=== PATIENT | male | born 1990 | race Two or more races ===

== ENCOUNTER 2022-01-11 16:05 | Emergency (ER) | payer OTHER ==
--- NOTE | 2022-01-11 16:55 | CT Report ---
PROCEDURE: HEAD WO INDICATIONS: fall off ladder, +LOC TECHNIQUE: Noncontrast 4.5 mm thick angled axial sections acquired from the foramen magnum to the vertex. For r adiation dose reduction, the following was used: automated exposure control, adjustment of mA and/or kV according to patient size. COMPARISON: None. FINDINGS: Image quality: Excellent. CSF spaces: Basal cisterns are patent. No extra-axial fluid collections. Ventricles are normal in size and shape. Brain: No midline shift. No intracranial masses or hemorrhage. Fulton-white matter interface is norm al. Skull and face: Calvarium and visualized facial bones are intact, without suspicious lesions. Sinuses: Marked mucosal thickening or multiple mucous retention cysts in the left maxillary sinus. Ot herwise unremarkable sinuses and mastoids. IMPRESSION: No evidence of acute intracranial process. Left maxillary sinus disease. Reviewed by: Richard Beck MD on 01/11/2022 4:54 PM PDT Approved by: Richard Beck MD on 01/11/2022 4:54 PM PDT Station ID: [id number]
--- NOTE | 2022-01-11 17:02 | ED Physician Documentation ---
PD HPI HEAD INJURY - Stated complaint Stated Complaint: HEAD INJ,BACK PX - Chief complaint Chief Complaint: Trauma Hd/Nk - History obtained from History obtained from: Patient - History of Present Illness Mechanism of head injury: Fell Where head injury occurred: Work Timing - onset: How many hours ago (2) Pain level max: 8 Pain level now: 2 Location of injury: Back Quality of pain: Pain, Aching, Dull Associated symptoms: LOC (2 mins). No: AMS, Amnesia, Nausea / vomiting, Neck pain, Paresthesias, Seizures, Ear drainage, Nasal drainage Symptoms improve with: Rest Symptoms worsen with: Palpation, Movement Contributing factors: No: Anticoagulated, Intoxicated Recently seen: Not recently seen - Additional information Additional information: 31-year-old male was at work today when he fell off of a ladder and struck his head on the ground. He states loss of consciousness for about 2 minutes. Currently asymptomatic other than a mild headache. No neck or back pain. No numbness or tingling. No vomiting. No seizure activity Review of Systems Ten Systems: 10 systems reviewed and negative Constitutional: denies: Fever, Chills Ears: denies: Ear pain Nose: denies: Rhinorrhea / runny nose, Congestion Respiratory: denies: Cough GI: denies: Nausea, Vomiting, Diarrhea Skin: denies: Rash Musculoskeletal: denies: Neck pain, Back pain Neurologic: denies: Focal weakness, Numbness, Seizure, Confused PD PAST MEDICAL HISTORY - Past Medical History Past Medical History: No - Past Surgical History Past Surgical History: No - Present Medications Home Medications: Ambulatory Orders Medication Instructions Recorded Confirmed No Known Home Medications 01/11/22 01/11/22 - Allergies Allergies/Adverse Reactions: Allergies Allergy/AdvReac Type Severity Reaction Status Date / Time No Known Drug Allergies Allergy Verified 01/11/22 16:11 - Living Situation Living Arrangement: reports: At home - Social History Does the pt smoke?: No Smoking Status: Never smoker Does the pt drink ETOH?: Yes PD ED PE NORMAL - Vitals Vital signs reviewed: Yes - General General: Alert and oriented X 3, No acute distress - HEENT HEENT: Atraumatic, PERRL, Ears normal, Moist mucous membranes, Pharynx benign, Other (No palpable skull fractures. No scalp hematomas.) - Neck Neck: Supple, no meningeal sign, No bony TTP, C-Spine cleared by NEXUS criteria - Cardiac Cardiac: RRR, Strong equal pulses - Respiratory Respiratory: No respiratory distress, Clear bilaterally - Abdomen Abdomen: Soft, Non tender, Non distended - Back Back: No spinal TTP - Derm Derm: Warm and dry - Extremities Extremities: Normal ROM s pain - Neuro Neuro: Alert and oriented X 3, alarm mechanic 2-12 intact, No motor deficit, No sensory deficit, Normal speech Eye Opening: Spontaneous Motor: Obeys Commands Verbal: Oriented GCS Score: 15 - Psych Psych: Normal mood, Normal affect Results - Vitals Vitals: Vital Signs - 24 hr 01/11/22 01/11/22 01/11/22 16:11 16:46 17:16 Temperature 37.2 C 37.0 C Heart Rate 104 H 99 88 Respiratory 18 18 16 Rate Blood Pressure 174/97 H 141/96 H 130/88 H O2 Saturation 97 97 100 01/11/22 17:30 Temperature 37.0 C Heart Rate 88 Respiratory 16 Rate Blood Pressure 130/88 H O2 Saturation 100 Oxygen O2 Source Room air - Rads (name of study) Head CT Radiology: Final report received, EMP read contemporaneously, See rad report PD MEDICAL DECISION MAKING - ED course Complexity details: reviewed results, re-evaluated patient, considered differential, d/w patient ED course: Patient status post a fall off of a ladder today. Positive loss of consciousness for approximately 2 minutes. No neck or back pain. No focal neurological deficits. Head CT does not show any acute abnormalities. Only has a minimal headache now. No altered mental status. We will have him follow-up with his doctor for further care and to be released back to full work. Likely has a mild concussion. Patient will stay off of ladders at work until released. Patient counseled regarding signs and symptoms for which I believe and urgent re-evaluation would be necessary. Patient with good understanding of and agreement to plan and is comfortable going home at this time This document was made in part using voice recognition software. While efforts are made to proofread this document, sound alike and grammatical errors may occur. Departure - Departure Disposition: 01 Home, Self Care Clinical Impression: Closed head injury Qualifiers: Encounter type: initial encounter Qualified Code(s): S09.90XA - Unspecified injury of head, initial encounter Condition: Good Instructions: ED Head Injury Closed Ch Follow-Up: your,doctor in 1 week for recheck [Other] Shannon Burnett PA-C [Physician No Access] - Within 3 Days Comments: You can use Motrin or Tylenol as needed for pain at home. You should stay off of ladders until you no longer have any headaches, lightheadedness or dizziness. You should be cleared by your doctor before returning to full work including being on a ladder. Forms: Activity restrictions Discharge Date/Time: 01/11/22 17:46
[2022-01-11 17:33] VITALS: BP 130/88
== END 2022-01-11 17:46 | disposition home or self-care (01) ==
LOC: ED 16:05
DX: S06.9X1A Unspecified intracranial injury with loss of consciousness of 30 minutes or less, initial encounter (principal); W11.XXXA Fall on and from ladder, initial encounter; Y99.0 Civilian activity done for income or pay
CPT/HCPCS: 1040M; 70450; 99282; 99284